=== PATIENT | male | born 1990 | race Hispanic/Latino ===

== ENCOUNTER 2019-03-28 11:36 | Day surgery (SDC) | payer OTHER ==
[2019-03-28] MEDS ORDERED: PROPOFOL 200 MG/20 ML VIAL ONE (15:16)
[2019-03-28] MEDS ORDERED: Dexamethasone 20 MG/5 ML VIAL ONE (15:16)
[2019-03-28] MEDS ORDERED: Ondansetron PF 4 MG/2 ML Vial ONE (15:16)
[2019-03-28] MEDS ORDERED: Lidocaine 1% PF 5 ML VIAL ONE (15:16)
[2019-03-28] MEDS ORDERED: Bupivacaine PF 0.5% 30 ML VIAL ONE (16:15)
[2019-03-28] MEDS ORDERED: Fentanyl 100 MCG/2 ML VIAL ONE ×3 (16:24→17:55)
--- NOTE | 2019-03-28 18:03 | RAD ---
LEFT HAND THREE VIEWS: 03/28/19 HISTORY: Left boxer's fracture. FINDINGS/IMPRESSION: Three spot fluoroscopic intraoperative images of the left hand demonstrate reduction of the fracture of the fifth metacarpal with external pinning. POS: JUMA
--- NOTE | 2019-03-29 00:07 | OP ---
DATE OF PROCEDURE: 03/28/2019 PROCEDURE PERFORMED: Closed reduction and percutaneous pinning of left fifth metacarpal fracture. PREOPERATIVE DIAGNOSIS: Left fifth metacarpal fracture. POSTOPERATIVE DIAGNOSIS: Left fifth metacarpal fracture. COMPLICATIONS: None. ESTIMATED BLOOD LOSS: Minimal. IMPLANT: Synthes 0.062 K-wire. INDICATIONS: Saul is a 28-year-old male, who fractured the 5th metacarpal. He had rotation and flexion. He was indicated for closed reduction and pinning of the fracture to restore anatomic alignment and promote healing. Risks have been reviewed in detail. He elected to proceed with the operation. Risks to include infection, pain, nerve or vascular injury, nonunion, malunion, and others. DESCRIPTION OF PROCEDURE: Mr. Beasley was identified in the preoperative holding area. His correct extremity was marked. He was carried to the operating room. He was positioned supine. General anesthesia was induced. A multidisciplinary time-out was performed. The left upper extremity was prepped and draped in sterile fashion. We began the procedure with intraoperative evaluation of the fracture. We reduced the fracture back into its anatomic position using traction and flexion. We then obtained an appropriate start point for our K-wire. We made a small incision on the skin. We then inserted our K-wire through the metacarpal head using intraoperative x-ray guidance. We passed the K-wire through the intramedullary canal to the proximal aspect of the bone. This was seated appropriately. We took final images. We cut and bent our K-wire. We then proceeded to apply dressing with an ulnar gutter type splint. A sterile dressing was applied. The patient was taken to the recovery room at this point in good condition without complication. Job ID: [id number]
== END 2019-03-28 18:43 ==
LOC: SDC 11:36
PROVIDERS: ATTEND Orthopaedic Surgery
PROC: 0PSQ34Z Reposition Left Metacarpal with Internal Fixation Device, Percutaneous Approach (ICD-10-PCS; principal; 2019-03-28)
DX: S62.307A Unspecified fracture of fifth metacarpal bone, left hand, initial encounter for closed fracture (principal); F17.200 Nicotine dependence, unspecified, uncomplicated
CPT/HCPCS: 76000; J0690; J1100; J2001; J2405; J2704; J3010; S0020